=== PATIENT | male | born 1955 | race Hispanic/Latino ===

== ENCOUNTER 2019-10-28 08:32 | Day surgery (SDC) | payer MEDICARE ==
[~2019-10-28] VITALS: Ht 182.9 cm; Wt 8.2 kg
[~2019-10-28 08:32] MED LIST: SODIUM CHLORIDE 0.9% 1000ML 1,000 ML IV ONE
[2019-10-28 09:50] LABS: CREATININE 6.5 mg/dL (0.5-1.5); POTASSIUM 4.1 mmol/L (3.5-5.1)
[2019-10-28] MEDS ORDERED: LISI-617 PO (10:04)
[2019-10-28] MEDS ORDERED: APIX5TAB PO (10:04)
[2019-10-28] MEDS ORDERED: CARV25TA PO (10:04)
[2019-10-28] MEDS ORDERED: ATOR10TA69 PO (10:04)
[2019-10-28] MEDS ORDERED: AURYXIA PO (10:04)
[2019-10-28] MEDS ORDERED: VITA15DR3 PO (10:04)
[2019-10-28] MEDS ORDERED: PROPOFOL 10 MG/ML 20ML VIAL IV ONE (10:22)
[2019-10-28 10:40] VITALS: BP 140/85
[2019-10-28 10:45] VITALS: BP 154/74
[2019-10-28 10:50] VITALS: BP 152/67
[2019-10-28 11:05] VITALS: BP 158/94
== END 2019-10-28 11:30 | disposition home or self-care (01) ==
LOC: DAH 08:32 → ENDO 08:32
PROVIDERS: ATTEND Internal Medicine
DX: R12 Heartburn (principal); K31.89 Other diseases of stomach and duodenum; Q39.9 Congenital malformation of esophagus, unspecified; I10 Essential (primary) hypertension; K21.9 Gastro-esophageal reflux disease without esophagitis; E78.5 Hyperlipidemia, unspecified; E11.9 Type 2 diabetes mellitus without complications; Z79.01 Long term (current) use of anticoagulants; Z79.899 Other long term (current) drug therapy
CPT/HCPCS: 36415; 43239; 43249; 80048; 82948 ×2; A4215; A4221; A4222; A4223; A4606; A4620; A4663; J2704; J7030

== ENCOUNTER 2019-11-18 09:12 | Day surgery (SDC) | payer MEDICARE ==
[~2019-11-18] VITALS: Ht 182.9 cm; Wt 85.3 kg
[2019-11-18] VITALS (7 sets, daily range): BP systolic 148–158; BP diastolic 72–93
[~2019-11-18 09:12] MED LIST changes: +APIX5TAB PO; +ATOR10TA69 PO; +AURYXIA PO; +CARV25TA PO; +LISI-617 PO; +SODIUM CHLORIDE 0.9% 1000ML 0 ML IV ONE; -SODIUM CHLORIDE 0.9% 1000ML 1,000 ML IV ONE; +VITA15DR3 PO
[2019-11-18] MEDS ORDERED: SODIUM CHLORIDE 0.9% 1000ML 1,000 ML IV ONE (09:13)
[2019-11-18 10:15] LABS: CREATININE 6.1 mg/dL (0.5-1.5); POTASSIUM 3.4 mmol/L (3.5-5.1)
== END 2019-11-18 12:20 | disposition home or self-care (01) ==
LOC: ENDO 09:12
PROVIDERS: ATTEND Internal Medicine Gastroenterology
DX: Z12.11 Encounter for screening for malignant neoplasm of colon (principal); Z11.59 Encounter for screening for other viral diseases; Z86.010 Personal history of colon polyps; E78.5 Hyperlipidemia, unspecified; K21.9 Gastro-esophageal reflux disease without esophagitis; E11.22 Type 2 diabetes mellitus with diabetic chronic kidney disease; I12.0 Hypertensive chronic kidney disease with stage 5 chronic kidney disease or end stage renal disease; I48.91 Unspecified atrial fibrillation; N18.6 End stage renal disease; Z79.01 Long term (current) use of anticoagulants; Z79.899 Other long term (current) drug therapy; Z88.2 Allergy status to sulfonamides; Z88.1 Allergy status to other antibiotic agents; Z98.890 Other specified postprocedural states; Z99.2 Dependence on renal dialysis; Z82.49 Family history of ischemic heart disease and other diseases of the circulatory system; Z83.3 Family history of diabetes mellitus
CPT/HCPCS: 36415 ×2; 80048; 82948 ×2; A4215; A4221; A4222; A4223; A4606; A4615; A4663; G0105; J7030; U0003; 43200

== ENCOUNTER 2020-04-29 06:56 | Inpatient (IN) | payer MEDICARE ==
[~2020-04-29] VITALS: Ht 182.9 cm; Wt 82.6 kg
[~2020-04-29 06:56] MED LIST changes: -APIX5TAB PO; -SODIUM CHLORIDE 0.9% 1000ML 0 ML IV ONE
[2020-04-29 07:30] LABS: BASOPHILS % (AUTO) 1.2 % (0.0-5.0); EOSINOPHILS % (AUTO) 5.6 % (0.0-8.0); HEMATOCRIT 25.4 % (42-54); LYMPHOCYTES % (AUTO) 13.9 % (21.0-51.0); MEAN CORPUSCULAR HEMOGLOBIN 30.2 pg (27.0-33.0); MEAN CORPUSCULAR HGB CONC 33.5 g/dL (32.0-36.0); MEAN CORPUSCULAR VOLUME 90.4 fL (79-99); MONOCYTES % (AUTO) 5.5 % (3.0-13.0); NEUTROPHILS % (AUTO) 72.8 % (40.0-77.0); PLATELET COUNT (AUTO) 196 K/uL (130-400); RED BLOOD CELL COUNT(AUTO) 2.81 MIL/uL (4.50-6.20); RED CELL DISTRIBUTION WIDTH 12.6 % (11.0-15.5)
[2020-04-29] MEDS ORDERED: SODIUM CHLORIDE 0.9% 1000ML 1,000 ML IV ONE (07:36)
[2020-04-29 07:56] LABS: APPEARANCE,URINE Clear (CLEAR); BILIRUBIN,URINE Negative (NEGATIVE); COLOR,URINE Yellow (YELLOW); GLUCOSE, URINE (UA) >=1000 mg/dL (NEGATIVE); KETONES,URINE Negative (NEGATIVE); LEUKOCYTE ESTERASE ,URINE Trace (NEGATIVE); NITRATE,URINE Negative (NEGATIVE); OCCULT BLOOD,URINE Small (NEGATIVE); PH,URINE 8.5 (5.0-8.0); PROTEIN,URINE 300 mg/dL (NEGATIVE); UROBILINOGEN,URINE 0.2 mg/dL (0.2-1.0)
[2020-04-29 08:03] LABS: INR 1.14 (0.85-1.15); PARTIAL THROMBOPLASTIN TIME 28.9 SEC (26.3-35.5); PROTHROMBIN TIME 12.2 SEC (9.6-11.6)
[2020-04-29 08:05] LABS: ALBUMIN 3.3 g/dL (3.5-5.0); BILIRUBIN,TOTAL 0.5 mg/dL (0.2-1.0); POTASSIUM 4.3 mmol/L (3.5-5.1); TOTAL PROTEIN, SERUM 6.6 g/dL (6.0-8.3)
[2020-04-29 08:29] LABS: BACTERIA,URINE Few /HPF (None Seen); RBC,URINE 0-1 /HPF (0-1); WBC,URINE 0-1 /HPF (0-1)
[2020-04-29] MEDS ORDERED: PANTOPRAZOLE 40 MG/VIAL ONE (09:09)
[2020-04-29] MEDS ORDERED: ONDANSETRON HCL 4 MG/2 ML VIAL IVP PRN (09:45)
[2020-04-29 12:00] VITALS: BP 119/76
[2020-04-29 16:00] VITALS: BP 111/66
[2020-04-29] MEDS ORDERED: PEG 3350/NA SULF,BICARB,CL/KCL 4000 ML SOLN PO SCH (17:00)
[2020-04-29] MEDS ORDERED: APIX5TAB PO (18:09)
[2020-04-29] MEDS ORDERED: CETI10TA86 PO (18:10)
[2020-04-29 20:41] VITALS: BP 86/53
[2020-04-29] MEDS ORDERED: DEXTROSE 50%-WATER 50 ML DISP.SYRIN IV PRN (21:45)
[2020-04-29] MEDS ORDERED: GLUCAGON 1MG KIT 1 MG ML IM PRN (21:45)
[2020-04-29] MEDS: INSULIN HUMULIN R 100 UNIT/ML 3ML ONE ×2 (21:59→22:05)
[2020-04-29 23:06] LABS: HEMATOCRIT 16.7 % (42-54)
[2020-04-29 23:16] VITALS: BP 108/62
[2020-04-29] MEDS ORDERED: SODIUM CHLORIDE 0.9% 250 ML IV ONE (23:22)
[2020-04-30] VITALS (18 sets, daily range): BP systolic 112–158; BP diastolic 49–76
[2020-04-30 04:59] LABS: MEAN CORPUSCULAR HEMOGLOBIN 29.6 pg (27.0-33.0); MEAN CORPUSCULAR HGB CONC 33.3 g/dL (32.0-36.0); MEAN CORPUSCULAR VOLUME 88.8 fL (79-99); PLATELET COUNT (AUTO) 150 K/uL (130-400); RED BLOOD CELL COUNT(AUTO) 2.06 MIL/uL (4.50-6.20); RED CELL DISTRIBUTION WIDTH 12.7 % (11.0-15.5); WHITE BLOOD COUNT (AUTO) 12.1 K/uL (4.8-10.8)
[2020-04-30 05:14] LABS: HEMATOCRIT 18.3 % (42-54)
[2020-04-30 05:21] LABS: CREATININE 7.1 mg/dL (0.5-1.5)
[2020-04-30] MEDS ORDERED: SODIUM CHLORIDE 0.9% 250 ML IV ONE (05:36)
[2020-04-30 06:08] LABS: BAND NEUTROPHILS % (MANUAL) 4 % (0-2); BASOPHILS % (MANUAL) 2 % (0-2); LYMPHOCYTES % (MANUAL) 8 % (22-44); MAN.DIFF COMMENT-IMPRESSION MANUAL DIFFERENTIAL; MONOCYTES % (MANUAL) 3 % (2-9); SEGMENTED NEUTROPHILS % 83 % (40-70)
[2020-04-30] MEDS: INSULIN HUMULIN R 100 UNIT/ML 3ML SQ SCH ×4 (07:02→20:42)
[2020-04-30] MEDS: PANTOPRAZOLE 40 MG/VIAL IVP SCH (09:33)
--- NOTE | 2020-04-30 11:00 | NUR ---
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 HAS BEEN ON HD 1YEAR 3 MOS TTS [facility] AND DRIVES HIMSELF TO TX'S. [facility] WILL PROVIDE TRANSPORT HOME FROM HOSPITAL CM TO FOLLOW FOR DC NEEDS Addendum: 04/30/20 at 1718 by TUCKER URBINA RN Amended: Links added.
[2020-04-30] MEDS ORDERED: PROPOFOL 10 MG/ML 20ML VIAL IV ONE (12:22)
[2020-04-30 15:47] LABS: HEMATOCRIT 22.1 % (42-54)
[2020-04-30 22:20] LABS: HEMATOCRIT 19.6 % (42-54)
--- NOTE | 2020-04-30 22:28 | NUR ---
H/H LOW DR. TOBAR PAGED REGARDING LOW H/H 6.7/19.6. PENDING CALL BACK
[2020-04-30] MEDS ORDERED: CALCIUM CARBON 500MG CHEW TAB PO SCH (23:00)
[2020-04-30] MEDS ORDERED: CALCIUM CARBONATE 500 MG TABLET ONE (23:12)
[2020-04-30] MEDS ORDERED: CALCIUM CARBON 500MG CHEW TAB ONE (23:12)
--- NOTE | 2020-04-30 23:17 | NUR ---
CALL BACK FROM DR. AMADOU TOBAR WAS MADE AWARE OF PATIENT'S H/H OF 6.7/19.6. MD ORDERED FOR PATIENT TO RECEIVE ONE UNIT OF PRBC'S DURING DIALYSIS TOMORROW 05/01/20. WAS ALSO NOTIFIED OF PATIENT REQUESTING ANTACID, TUMS ORDERED PRN.
[2020-05-01] VITALS (7 sets, daily range): BP systolic 125–157; BP diastolic 68–84
[2020-05-01 03:50] LABS: BASOPHILS % (AUTO) 0.5 % (0.0-5.0); EOSINOPHILS % (AUTO) 3.9 % (0.0-8.0); LYMPHOCYTES % (AUTO) 16.3 % (21.0-51.0); MEAN CORPUSCULAR VOLUME 88.5 fL (79-99); MONOCYTES % (AUTO) 7.1 % (3.0-13.0); PLATELET COUNT (AUTO) 137 K/uL (130-400); RED CELL DISTRIBUTION WIDTH 13.2 % (11.0-15.5); WHITE BLOOD COUNT (AUTO) 11.3 K/uL (4.8-10.8)
[2020-05-01 03:53] LABS: HEMATOCRIT 17.7 % (42-54)
[2020-05-01 04:09] LABS: POTASSIUM 3.6 mmol/L (3.5-5.1)
[2020-05-01 04:12] LABS: CREATININE 8.5 mg/dL (0.5-1.5)
[2020-05-01] MEDS: INSULIN HUMULIN R 100 UNIT/ML 3ML SQ SCH ×4 (06:38→21:14)
[2020-05-01] MEDS: PANTOPRAZOLE 40 MG/VIAL IVP SCH (08:25)
[2020-05-01 10:07] LABS: HEMATOCRIT 17.1 % (42-54)
[2020-05-01] MEDS ORDERED: EPOETIN ALFA 10,000 UNIT/ML VIAL SQ SCH (12:45)
[2020-05-01] MEDS ORDERED: COMPOUND IV MISC 1 EACH IVSOLN MISC PRN (13:30)
[2020-05-01] MEDS: IRON SUCROSE COMPLEX 100 MG in SODIUM CHLORIDE 0.9% 50 ML IV SCH (14:15)
--- NOTE | 2020-05-01 15:31 | NUR ---
RD NOTIFICATION Pt admitted with GI Bleed. Pt with Anemia and blood per rectum, as per EMR. Pt pending hemodialysis, transfusion, possible colonoscopy at time of screen. Pt tolerating Hemodialysis Diet Order with no report of GI distress, Good PO intake at 100%. Monitored labs: H/H 6.0/17.1, WBC 11.3, BUN 47, Cr 8.5, GFR 7, BG 187, Ca 8.0, Alb 3.3. Humulin R and Protonix medications in place. Recommend continue Renal Dialysis Diet Order RD to follow up Renal Dialysis Nutrition Education. RD to continue to monitor. Please notify as additional nutrition concerns arise. Thank you. Addendum: 05/01/20 at [address] RD Amended: Links added.
[2020-05-01 16:49] LABS: HEMATOCRIT 21.2 % (42-54)
[2020-05-01 21:35] LABS: HEMATOCRIT 21.4 % (42-54)
[2020-05-02 03:34] VITALS: BP 130/79
[2020-05-02] MEDS: INSULIN HUMULIN R 100 UNIT/ML 3ML SQ SCH ×3 (06:06→20:44)
[2020-05-02 06:10] LABS: BASOPHILS % (AUTO) 0.7 % (0.0-5.0); EOSINOPHILS % (AUTO) 4.3 % (0.0-8.0); HEMATOCRIT 21.9 % (42-54); LYMPHOCYTES % (AUTO) 17.9 % (21.0-51.0); MEAN CORPUSCULAR HEMOGLOBIN 30.4 pg (27.0-33.0); MEAN CORPUSCULAR HGB CONC 34.7 g/dL (32.0-36.0); MEAN CORPUSCULAR VOLUME 87.6 fL (79-99); MONOCYTES % (AUTO) 6.4 % (3.0-13.0); NEUTROPHILS % (AUTO) 69.5 % (40.0-77.0); PLATELET COUNT (AUTO) 165 K/uL (130-400); RED CELL DISTRIBUTION WIDTH 13.5 % (11.0-15.5); WHITE BLOOD COUNT (AUTO) 10.7 K/uL (4.8-10.8)
[2020-05-02 08:00] VITALS: BP 138/74
[2020-05-02] MEDS: PANTOPRAZOLE 40 MG/VIAL IVP SCH (09:44)
[2020-05-02 10:12] LABS: HEMATOCRIT 20.5 % (42-54)
[2020-05-02] MEDS: IRON SUCROSE COMPLEX 100 MG in SODIUM CHLORIDE 0.9% 50 ML IV SCH (10:16)
[2020-05-02 12:00] VITALS: BP 146/80
--- NOTE | 2020-05-02 14:24 | NUR ---
NUTRITION EDUCATION RD reviewed Diabetes Nutrition Education with Pt. Pt reports History of DM but was in remission for some time but found to have elevated blood sugars on this admission. DANIEL reviewed nutrition education with Pt. Pt demonstrated knowledge for Renal Dialysis Nutrition recommendations. Declines additional handouts as he receives a lot from Dialysis center. Addendum: 05/02/20 at [address] Amended: Links added.
--- NOTE | 2020-05-02 14:26 | NUR ---
RD UPDATE/FOLLOW UP Pt tolerating current diet order with no nausea, vomiting. Pt reports has not had a sufficient BM since colonoscopy. Had a very small BM, no signs of bleeding. Pt requests Prune juice and has consumed X3. Pt is also eating well. Pt reports he is typically on medication for Phosphorus and usually has high Phos levels, but has not received since admit. Recommend Phosphorus lab draw and resume phosphorus binding medication as medically feasible Recommend 75gm CC diet modification. RD discussed Nutrition education with Pt. RD to continue to monitor.
[2020-05-02 16:00] VITALS: BP 151/82
[2020-05-02 20:28] VITALS: BP 124/68
[2020-05-03] VITALS (17 sets, daily range): BP systolic 122–152; BP diastolic 71–90
[2020-05-03] MEDS ORDERED: TRAZODONE HCL 50 MG TAB ONE (00:39)
[2020-05-03] MEDS ORDERED: TRAZODONE HCL 50 MG TAB PO PRN (00:45)
[2020-05-03 05:27] LABS: MEAN CORPUSCULAR HEMOGLOBIN 30.9 pg (27.0-33.0); MEAN CORPUSCULAR HGB CONC 34.7 g/dL (32.0-36.0); MEAN CORPUSCULAR VOLUME 88.9 fL (79-99); PLATELET COUNT (AUTO) 152 K/uL (130-400); RED BLOOD CELL COUNT(AUTO) 2.17 MIL/uL (4.50-6.20); RED CELL DISTRIBUTION WIDTH 13.5 % (11.0-15.5); WHITE BLOOD COUNT (AUTO) 8.8 K/uL (4.8-10.8)
[2020-05-03 05:32] LABS: HEMATOCRIT 19.3 % (42-54)
--- NOTE | 2020-05-03 05:38 | NUR ---
Informed Emilia STREETER of Dr. Guerrero regarding critical hemoglobin of 6.7 hematocrit 19.3. She said to hold off on transfusing untill DR Guerrero sees patient in am and to notify Dr. Coe regarding lab values since he is pending for an EGD with MAC with her. Will monitor patient closely. Patient is comfortable in bed. Denies any complaints.
[2020-05-03 05:43] LABS: PHOSPHORUS 5.1 mg/dL (2.5-4.9); POTASSIUM 3.4 mmol/L (3.5-5.1)
[2020-05-03 05:49] LABS: CREATININE 8.4 mg/dL (0.5-1.5)
--- NOTE | 2020-05-03 06:15 | NUR ---
Informed Dr. Sanchez regarding critical hemaglobin and hematocrit of 6.7 and 19.3.S he said patient will still get EGD this morning as long as his asymptomatic which he is. And to give 1 unit of PRBC during dialysis today. Will monitor patient closely.
[2020-05-03 06:21] LABS: BAND NEUTROPHILS % (MANUAL) 1 % (0-2); EOSINOPHILS % (MANUAL) 7 % (1-6); LYMPHOCYTES % (MANUAL) 16 % (22-44); MONOCYTES % (MANUAL) 8 % (2-9); SEGMENTED NEUTROPHILS % 68 % (40-70)
[2020-05-03 06:23] LABS: MAN.DIFF COMMENT-IMPRESSION MANUAL DIFFERENTIAL
[2020-05-03] MEDS: INSULIN HUMULIN R 100 UNIT/ML 3ML SQ SCH ×4 (06:25→21:12)
[2020-05-03 07:14] LABS: HEPATITIS A ANTIBODY IGM Negative (Negative); HEPATITIS B CORE IGM Negative (Negative); HEPATITIS Bs ANTIGEN SCREEN P Negative (Negative)
[2020-05-03] MEDS: PANTOPRAZOLE 40 MG/VIAL IVP SCH (08:07)
[2020-05-03] MEDS: IRON SUCROSE COMPLEX 100 MG in SODIUM CHLORIDE 0.9% 50 ML IV SCH (08:08)
--- NOTE | 2020-05-03 10:00 | NUR ---
ONE UNIT OF BLOOD WAS REQUESTED PER GI STAFF TO INFUSED FOR THE HGB OF 6.7 WAS REQUESTED AND ONE UNIT OF BLOOD WAS SEND TO GI LAB FOR TRANSFUSION . SEE TRANSFUSION FLOW SHEET FOR TIME STARTED AND ENDED .
--- NOTE | 2020-05-03 10:08 | NUR ---
TO G.I. LAB WITH G.I. STAFF , VIA BED .
[2020-05-03] MEDS ORDERED: EPHEDRINE SULFATE 50 MG/ML AMPULE ONE (10:12)
[2020-05-03] MEDS ORDERED: LIDOCAINE HCL-MPF 2% 5ML VIAL ONE (10:12)
--- NOTE | 2020-05-03 12:10 | NUR ---
PT. BACK FROM GI LAB, DENIES ANY DISCOMFORT. PER REPORT . UNIT OF BLOOD WAS COMPLETED . IN PACU . . HOB UP POSTOP V/S WILL START TO BE MONITOR . .. CALL LIGHT IN REACH..
--- NOTE | 2020-05-03 15:45 | NUR ---
DIALYSIS TREATMENT COMPLETED WITH A REMOVAL OF 3.300 CC . TOLERATE WELL, SEE ACUTE DIALYISIS CARE HEMODIALYSIS ASSESSMENT FLOW SHEET FOR V/S AND TREATMENT .
--- NOTE | 2020-05-03 21:00 | NUR ---
Paged Dr. Mondragon regarding home medications pending call back
[2020-05-03] MEDS ORDERED: ZOLPIDEM TARTRATE 5 MG TAB PO PRN (23:45)
[2020-05-03] MEDS ORDERED: ZOLPIDEM TARTRATE 5 MG TAB ONE (23:54)
[2020-05-04 04:03] VITALS: BP 134/78
[2020-05-04 04:10] LABS: BASOPHILS % (AUTO) 0.3 % (0.0-5.0); EOSINOPHILS % (AUTO) 4.9 % (0.0-8.0); HEMATOCRIT 24.1 % (42-54); LYMPHOCYTES % (AUTO) 14.6 % (21.0-51.0); MEAN CORPUSCULAR HEMOGLOBIN 30.4 pg (27.0-33.0); MEAN CORPUSCULAR VOLUME 89.3 fL (79-99); MONOCYTES % (AUTO) 9.5 % (3.0-13.0); PLATELET COUNT (AUTO) 176 K/uL (130-400); RED CELL DISTRIBUTION WIDTH 14.3 % (11.0-15.5); WHITE BLOOD COUNT (AUTO) 9.5 K/uL (4.8-10.8)
[2020-05-04] MEDS: INSULIN HUMULIN R 100 UNIT/ML 3ML SQ SCH (05:34)
[2020-05-04 08:00] VITALS: BP 146/88
[2020-05-04] MEDS ORDERED: PANT40TA55 PO (08:53)
[2020-05-04] MEDS ORDERED: APIX2.5T PO (08:53)
[2020-05-04] MEDS ORDERED: CARVEDILOL 25 MG TABLET PO SCH (09:00)
[2020-05-04] MEDS: IRON SUCROSE COMPLEX 100 MG in SODIUM CHLORIDE 0.9% 50 ML IV SCH (09:00)
[2020-05-04] MEDS: PANTOPRAZOLE 40 MG/VIAL IVP SCH (11:15)
--- NOTE | 2020-05-04 11:45 | NUR ---
NG TUBE DISCONTINUED WITH NO COMPLICATIONS Addendum: 05/04/20 at 1145 by ALICE SEBASTIAN RN RN WRONG PATIENT
[2020-05-04 12:00] VITALS: BP 156/97
--- NOTE | 2020-05-04 13:29 | NUR ---
DISCHARGE INSTRUCTIONS GIVEN TO PATIENT MADE AWARE OF FOLLOW UP WITH DR. RIVERS ON MAY 11, MADE AWARE OF NEW RX FOR PROTONIX AND DOSAGE CHANGE OF ELIQUIS. PATIENT AT THIS TIME DENIES ANY BLEEDING. V/S STABLE, DENIES PAIN. IV AND TELE REMOVED. INSTRUCTED TO FOLLOW UP WITH DR TOBAR IN DIALYSIS CLINIC AND PRIMARY CARE DOCTOR AT [facility]. PATIENT VOICED UNDERSTANDING.
== END 2020-05-04 13:41 | disposition home or self-care (01) | DRG 377 ==
LOC: EDH 06:56 → EDHIP 09:00 → 4BH 10:40
PROVIDERS: ADMIT Internal Medicine Nephrology; ATTEND Internal Medicine Nephrology
PROC: 30233N1 Transfusion of Nonautologous Red Blood Cells into Peripheral Vein, Percutaneous Approach (ICD-10-PCS; principal; 2020-04-29)
PROC: 0DJD8ZZ Inspection of Lower Intestinal Tract, Via Natural or Artificial Opening Endoscopic (ICD-10-PCS; 2020-04-30)
PROC: 5A1D70Z Performance of Urinary Filtration, Intermittent, Less than 6 Hours Per Day (ICD-10-PCS; 2020-05-01)
PROC: 5A1D70Z Performance of Urinary Filtration, Intermittent, Less than 6 Hours Per Day (ICD-10-PCS; 2020-05-03)
PROC: 0DJ08ZZ Inspection of Upper Intestinal Tract, Via Natural or Artificial Opening Endoscopic (ICD-10-PCS; 2020-05-03)
DX: K57.31 Diverticulosis of large intestine without perforation or abscess with bleeding (principal); N18.6 End stage renal disease; I12.0 Hypertensive chronic kidney disease with stage 5 chronic kidney disease or end stage renal disease; E11.22 Type 2 diabetes mellitus with diabetic chronic kidney disease; E78.5 Hyperlipidemia, unspecified; K64.9 Unspecified hemorrhoids; I25.10 Atherosclerotic heart disease of native coronary artery without angina pectoris; D50.0 Iron deficiency anemia secondary to blood loss (chronic); H54.62 Unqualified visual loss, left eye, normal vision right eye; Z88.2 Allergy status to sulfonamides; Z83.3 Family history of diabetes mellitus; Z99.2 Dependence on renal dialysis; Z79.01 Long term (current) use of anticoagulants
CPT/HCPCS: 36415; 36430; 43235; 45378; 71045; 78278; 80048; 80053; 80074; 81001; 82270; 82550; 82948; 84100; 84484; 85014; 85018; 85025; 85610; 85730; 86850; 86900; 86901; 86923; 87486; 87507; 87581; 87633; 87798; 90935; 93005; A4606; A9512; C9113; G0378; J0885; J1756; J1815; J2405; J2704; J3490; J7030; J7050; P9016

== ENCOUNTER 2023-10-08 15:58 | Emergency (ER) | payer MEDICARE, OTHER ==
[~2023-10-08] VITALS: Ht 180.3 cm; Wt 80.7 kg
[~2023-10-08 15:58] MED LIST changes: +APIX2.5T PO; +CETI10TA87 PO; -LISI-617 PO; +LISI5TAB21 PO; +PANT40TA55 PO
[2023-10-08 16:53] LABS: BASOPHILS # (AUTO) 0.02 K/uL (0.00-0.20); BASOPHILS % (AUTO) 0.3 % (0.0-5.0); EOSINOPHILS # (AUTO) 0.01 K/uL (0.00-0.70); EOSINOPHILS % (AUTO) 0.1 % (0.0-8.0); HEMATOCRIT 35.5 % (42-54); IMMATURE GRANULOCYTE ABSOLUTE 0.02 K/uL (0-1); LYMPHOCYTES # (AUTO) 0.2 K/uL (1.0-4.8); LYMPHOCYTES % (AUTO) 3.1 % (21.0-51.0); MEAN CORPUSCULAR HEMOGLOBIN 30.4 pg (27.0-33.0); MEAN CORPUSCULAR HGB CONC 33.5 g/dL (32.0-36.0); MEAN CORPUSCULAR VOLUME 90.8 fL (79-99); MONOCYTES # (AUTO) 0.1 K/uL (0.1-1.0); MONOCYTES % (AUTO) 0.9 % (3.0-13.0); NEUTROPHILS # (AUTO) 6.4 K/uL (1.8-7.7); NEUTROPHILS % (AUTO) 95.3 % (40.0-77.0); PLATELET COUNT (AUTO) 98 K/uL (130-400); RED BLOOD CELL COUNT(AUTO) 3.91 MIL/uL (4.50-6.20); RED CELL DISTRIBUTION WIDTH 14.1 % (11.0-15.5); WHITE BLOOD COUNT (AUTO) 6.8 K/uL (4.8-10.8)
[2023-10-08 17:03] LABS: APPEARANCE,URINE CLEAR (CLEAR); BILIRUBIN,URINE NEGATIVE (NEGATIVE); COLOR,URINE YELLOW (YELLOW); GLUCOSE, URINE (UA) 250 mg/dL (NEGATIVE); KETONES,URINE NEGATIVE (NEGATIVE); LEUKOCYTE ESTERASE ,URINE MODERATE Leu/uL (NEGATIVE); NITRATE,URINE NEGATIVE (NEGATIVE); OCCULT BLOOD,URINE SMALL (NEGATIVE); PH,URINE 8.5 (5.0-8.0); PROTEIN,URINE 100 mg/dL (NEGATIVE); UROBILINOGEN,URINE 0.2 mg/dL (0.2-1.0)
[2023-10-08 17:04] LABS: ADD UA MICROSCOPIC YES
[2023-10-08 17:06] LABS: RAPID GROUP A STREP negative (NEGATIVE)
[2023-10-08 17:10] LABS: NON-SQUAMOUS EPITHELIAL CELL 1 /HPF (0-2); RBC,URINE 26-50 /HPF (0-1); SQUAMOUS EPITHELIAL CELL,UR RARE /HPF (0-2); WBC CLUMP RARE /HPF (0-1); WBC,URINE 51-100 /HPF (0-1)
[2023-10-08 17:11] LABS: CREATININE 7.9 mg/dL (0.5-1.3); POTASSIUM 4.4 mmol/L (3.5-5.1)
[2023-10-08 17:16] LABS: COVID19 (SARS ANTIGEN RAPID) PRESUMPTIVE NEGATIVE (NEGATIVE); INFLUENZA TYPE A Negative For Type A (NEGATIVE); INFLUENZA TYPE B Negative For Type B (NEGATIVE)
[2023-10-08 17:16] LABS: ALBUMIN 3.6 g/dL (3.5-5.0)
[2023-10-08] MEDS: ACETAMINOPHEN 500 MG TABLET PO ONE (18:32)
[2023-10-08] MEDS: ZOSYN 3.375GM +NS 50ML IV ONE (18:37)
[2023-10-08 19:13] VITALS: TEMP 100.4
[2023-10-08 20:53] VITALS: BP 140/90; PULSE 98; RESP 18; O2SAT 99
== END 2023-10-08 21:53 | disposition short-term general hospital (02) ==
LOC: EDH 15:58
DX: N39.0 Urinary tract infection, site not specified (principal); A41.9 Sepsis, unspecified organism; I12.0 Hypertensive chronic kidney disease with stage 5 chronic kidney disease or end stage renal disease; E11.22 Type 2 diabetes mellitus with diabetic chronic kidney disease; N18.6 End stage renal disease; Z99.2 Dependence on renal dialysis; E78.00 Pure hypercholesterolemia, unspecified; I48.91 Unspecified atrial fibrillation; K57.30 Diverticulosis of large intestine without perforation or abscess without bleeding; Z20.822 Contact with and (suspected) exposure to COVID-19; Z79.899 Other long term (current) drug therapy; Z98.890 Other specified postprocedural states; Z88.2 Allergy status to sulfonamides
CPT/HCPCS: 36415; 71045; 74176; 80053; 81001; 83605; 85025; 87040; 87077; 87088; 87186; 87426; 87804; 87880; 93005; 96374; 99291